=== PATIENT | male | born 1935 | race Caucasian/White ===

== ENCOUNTER 2017-01-28 15:20 | Inpatient (IN) | payer MEDICARE ==
[~2017-01-28 15:20] MED LIST: ALDACTONE25 M1 PO; ALEVE220 MG; AMIODARONE HCL200 M1 PO; ASPIR 8181 MG; ASPIR 8181 MG PO; ASPIRIN EC81 MG PO; BETAPACE80 M2 PO; BP MED; CIPRO500 M2 PO; COQ-10100 M1 PO; COREG3.125 M1 PO; DEMADEX20 M1 PO; ELIQUIS2.5 M1; ELIQUIS5 M1 PO; ESSENTIAL DAIL1 EACH PO; FISH OIL 1,2001 CAP PO; FLOMAX0.4 M1 PO; K-TAB ER20 ME1 PO; LASIX20 M1 PO; LASIX40 M1 PO; MULTI VITAMIN1 EAC2 PO; MULTIVITAMIN1 CAP; NIACIN TD500 MG PO; NITROSTAT0.4 MG/TAB SL; OMEGA 31 CAP; PLAVIX75 M1 PO; PLAVIX75 MG; POTASSIUM CHLO20 ME3 PO; POTASSIUM CHLORIDE; PROSCAR5 M1 PO; SIMVASTATIN10 M1 PO; SIMVASTATIN40 M1 PO; VYTORIN 10/40 T1 TAB; ZESTRIL2.5 M3 PO; ZOCOR40 MG PO; [UNRECOGNIZED DRUG - CODE] PO; mulitvitamin; multivitamin
[2017-01-28 17:05] LABS: BASO % 0.1 % (0-2); EOS % 0.8 % (0-7); EOSINOPHIL ABSOLUTE COUNT 0.1 tho/cmm (0.0-0.7); HCT-HEMATOCRIT 36.6 % (36.0-53.5); HGB-HEMOGLOBIN 12.4 gm/dl (13.5-17.0); IMMATURE GRANULOCYTES ABSOLUTE 0.02 tho/cmm (0-0.03); IMMATURE GRANULOCYTES PERCENT 0.2 % (0-0.3); LYMPH % 60.4 % (20-45); LYMPH ABSOLUTE COUNT 6.1 tho/cmm (0.8-4.5); MCH (MEAN CORPUSCULAR HGB) 32.1 pg (28.0-32.0); MCHC MEAN CORPUSCULAR HGB CONC 33.9 % (32.0-36.0); MCV (MEAN CELL VOLUME) 94.8 fl (82.0-96.0); MEAN PLATELET VOLUME 10.6 cmc (9.4-12.4); MONO % 7.1 % (0-12); MONOCYTE ABSOLUTE COUNT 0.7 tho/cmm (0.0-1.2); NEUTROPHIL ABSOLUTE COUNT 3.2 tho/cmm (1.6-8.0); NEUTROPHIL-AUTOMATED 3.2 tho/cmm (1.6-8.0); NEUTROPHILS % 31.4 % (40-80); PLATELET COUNT 83 tho/cmm (150-450); RED BLOOD COUNT 3.86 mil/cmm (4.40-5.70); RED CELL DISTRIBUTION WIDTH 13.1 % (12.4-16.4); WHITE BLOOD COUNT 10.1 tho/cmm (4.0-10.0)
[2017-01-28 17:11] LABS: INR 1.6 INR (0.9-1.1); PROTHROMBIN TIME 19.3 SECONDS (9.0-13.6)
[2017-01-28 17:18] LABS: ANION GAP 14 mmol/L (0-20); BLOOD UREA NITROGEN 33 mg/dl (6-24); CALCIUM 8.9 mg/dl (8.5-10.5); CARBON DIOXIDE-VENOUS 26 mmol/L (22-32); CHLORIDE 105 mmol/l (96-110); CREATININE 1.57 mg/dl (0.60-1.30); GLUCOSE 105 mg/dL (70-110); POTASSIUM 3.8 mmol/L (3.7-5.1); SODIUM 141 mmol/L (135-145); eGFR VALUE FOR BLACK 48 mL/Min
[2017-01-28 17:58] LABS: WBC MORPHOLOGY VARIANT LYMPHS
[2017-01-28 18:53] LABS: URINE BILIRUBIN NEGATIVE (NEG); URINE BLOOD LARGE (NEG); URINE GLUCOSE (UA) NEGATIVE (NEG); URINE KETONE SMALL (NEG); URINE LEUKOCYTE ESTERASE POSITIVE (NEG); URINE NITRITE POSITIVE (NEG); URINE PROTEIN LARGE (NEG); URINE SPECIFIC GRAVITY 1.015 (1.003-1.030)
[2017-01-28 18:55] LABS: URINE AMORPHOUS 1+; URINE APPEARANCE BLOODY; URINE COLOR RED; URINE EPITHELIAL CELLS 0 /[HPF] (0-10); URINE RBC FULL FIELD /[HPF] (0-5)
[2017-01-29 05:03] LABS: BASO % 0.2 % (0-2); EOS % 0.9 % (0-7); HCT-HEMATOCRIT 34.1 % (36.0-53.5); HGB-HEMOGLOBIN 11.6 gm/dl (13.5-17.0); IMMATURE GRANULOCYTES ABSOLUTE 0.01 tho/cmm (0-0.03); IMMATURE GRANULOCYTES PERCENT 0.1 % (0-0.3); LYMPH % 53.4 % (20-45); MCH (MEAN CORPUSCULAR HGB) 32.1 pg (28.0-32.0); MCV (MEAN CELL VOLUME) 94.5 fl (82.0-96.0); MEAN PLATELET VOLUME 11.3 cmc (9.4-12.4); MONO % 4.5 % (0-12); NEUTROPHIL ABSOLUTE COUNT 4.3 tho/cmm (1.6-8.0); NEUTROPHIL-AUTOMATED 4.3 tho/cmm (1.6-8.0); NEUTROPHILS % 40.9 % (40-80); PLATELET COUNT 80 tho/cmm (150-450); RED BLOOD COUNT 3.61 mil/cmm (4.40-5.70); RED CELL DISTRIBUTION WIDTH 13.1 % (12.4-16.4); WHITE BLOOD COUNT 10.4 tho/cmm (4.0-10.0)
[2017-01-29 05:27] LABS: EOSINOPHIL ABSOLUTE COUNT 0.1 tho/cmm (0.0-0.7); LYMPH ABSOLUTE COUNT 5.6 tho/cmm (0.8-4.5); MONOCYTE ABSOLUTE COUNT 0.5 tho/cmm (0.0-1.2)
[2017-01-29 05:29] LABS: ALBUMIN 3.2 g/dl (3.5-5.0); ALT/SGPT 19 U/L (12-78); ANION GAP 12 mmol/L (0-20); AST/SGOT 19 U/L (10-40); BLOOD UREA NITROGEN 27 mg/dl (6-24); CALCIUM 8.5 mg/dl (8.5-10.5); CARBON DIOXIDE-VENOUS 26 mmol/L (22-32); CHLORIDE 107 mmol/l (96-110); CREATININE 1.29 mg/dl (0.60-1.30); GLUCOSE 100 mg/dL (70-110); POTASSIUM 3.3 mmol/L (3.7-5.1); SODIUM 142 mmol/L (135-145); eGFR VALUE FOR BLACK 61 mL/Min
[2017-01-29 05:31] LABS: ALB/GLOB RATIO 1.3 (0.8-2.0); ALKALINE PHOSPHATASE 50 U/L (33-138); BILIRUBIN,TOTAL 1.7 mg/dl (0.0-1.5)
[2017-01-30] MEDS ORDERED: BACTRIM DS TAB1 EAC2 PO (14:18)
--- NOTE | 2017-01-30 14:35 | NUR ---
VN DISCHARGE NOTE-TAUGHT HF DISMISSAL INSTRUCTIONS TO PATIENT, REVIEWED MEDS, NEW MEDS AND WHICH ONES TO HOLD. FOLLOW UP APPTS, S/S TO CALL DOCTOR. 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 PRIOR TO DISCHARGE I HAD SPOKEN WITH NATASHA WHITAKER WITH [facility] AND PATIENT WAS TO HAVE PACEMAKER INTEROGATED BY [employer] YESTERDAY AND STILL NOT DONE. I CALLED [facility] AND SPOKE WITH ARMINDA AFTER 4 ATTEMPTS T [phone]. HE WILL HAVE SOMEONE COME OUT. I SPOKE WITH PATIENT AND HE WAS ANXIOUS READY TO GO AND FELT LIKE NOTHING NEEDED TO BE DONE WITH PACEMAKER IT WAS BEING UPGRADED ON SUNDAY. I CALLED NATASHA Dupont AND SHE SAID OK TO DC WITHOUT INTEROGATION. I SPOKE WITH LILLI AT [employer] AND SHE WILL FOLLOW UP WITH NATASHA ON WHAT REMOTE SHOWS ON PACER.
== END 2017-01-30 13:40 | DRG 696 ==
LOC: EDMED 15:20 → EMR2 19:43 → 5WD 20:44
PROVIDERS: Emergency Medicine; Internal Medicine; ADMIT Hospitalist
DX: R31.0 Gross hematuria (principal); N17.9 Acute kidney failure, unspecified; C91.10 Chronic lymphocytic leukemia of B-cell type not having achieved remission; I42.9 Cardiomyopathy, unspecified; I50.22 Chronic systolic (congestive) heart failure; D62 Acute posthemorrhagic anemia; I48.0 Paroxysmal atrial fibrillation; I25.10 Atherosclerotic heart disease of native coronary artery without angina pectoris; D69.6 Thrombocytopenia, unspecified; N18.9 Chronic kidney disease, unspecified; Z79.01 Long term (current) use of anticoagulants; Z95.0 Presence of cardiac pacemaker